=== PATIENT | female | born 1955 | race Caucasian/White ===

== ENCOUNTER 2017-02-20 12:54 | Observation (INO) ==
[2017-02-20 16:56] LABS: MANUAL DIFF NEEDED? NO
[2017-02-20 17:05] LABS: BASO% 0.1 % (0.0-0.8); EOS# 0.05 X1000 (0.0-0.7); EOS% 0.6 % (0.0-10.0); HEMATOCRIT 38.1 % (37.0-47.0); IMM GRAN# 0.02 X1000 (0.0-0.04); IMM GRAN% 0.2 % (0.0-0.5); LYMPH# 1.81 X1000 (1.2-3.4); LYMPH% 20.8 % (20.5-51.1); MCH 28.7 PG (27-31); MCHC 34.1 g/dL (33-37); MCV 84.1 FL (81-99); MONO# 0.54 X1000 (0.11-0.59); MONO% 6.2 % (1.7-9.3); MPV 11.5 FL (7.4-10.4); NEUT% 72.1 % (42.2-75.2); PLT 189 X1000 (130-400); RBC 4.53 XMIL (4.2-5.4)
[2017-02-20 17:43] LABS: AGAP 14; ALKALINE PHOSPHATASE 93 U/L (32-104); BUN 14 mg/dL (8-22); CALCIUM 9.1 mg/dL (8.8-10.2); CHLORIDE 98 mmol/L (98-107); COSMO 276; GOT 16 U/L (10-30); GPT 18 U/L (10-36); POTASSIUM 3.4 mmol/L (3.5-5.1); SODIUM 138 mmol/L (136-145); TCO2 26 mmol/L (25-35); TOTAL BILIRUBIN 0.86 mg/dL (0.20-1.00); TOTAL PROTEIN 7.3 g/dL (6.3-8.3)
[2017-02-20 17:59] LABS: URINE MICRO REVIEW NEEDED? NO; URINE SOURCE CLEAN CATCH
[2017-02-20 18:04] LABS: BILIRUBIN URINE NEGATIVE (NEGATIVE); BLOOD URINE NEGATIVE (NEGATIVE); COLOR YELLOW; GLUCOSE URINE NEGATIVE (NEGATIVE); LEUKOCYTES URINE LARGE (NEGATIVE); NITRITE URINE POSITIVE (NEGATIVE); PH URINE 5.5; PROTEIN URINE 30 mg/dL (NEGATIVE); SP GRAVITY URINE 1.022; TURBIDITY URINE HAZY (CLEAR); UROBILINOGEN URINE NORMAL (NORMAL)
[2017-02-20 18:05] LABS: UR EPITHELIAL CELLS <10 /HPF (<10); URINE BACTERIA 4+ /HPF; URINE WBC TNTC /HPF (<10)
[2017-02-20] MEDS: NS 1,000 ML IV SCH (18:18)
[2017-02-20] MEDS: DILAUDID IV PRN ×2 (18:19→23:34)
[2017-02-20] MEDS: ZOFRAN IV PRN (18:19)
[2017-02-20] MEDS: LOVENOX SUBQ SCH (18:26)
[2017-02-20] MEDS: PROTONIX IV SCH (18:26)
[2017-02-20] MEDS: SODIUM CHLORIDE 0.9% INJ SCH (18:26)
[2017-02-20] MEDS: LEVAQUIN 500 MG/D5W 500 MG/100 ML IVPB IV SCH (18:29)
--- NOTE | 2017-02-20 19:17 | Diag Imaging Result Document ---
PROCEDURE NAME: CT ABD/PELVIS W/ IV CONT ONLY - 02/20/2017 CT OF THE ABDOMEN WITH INTRAVENOUS CONTRAST: FINDINGS: There are granulomata in the lung bases. The aorta is not distended. The mesenteric and renal arteries are patent. There has been previous cholecystectomy. The spleen is not enlarged. The pancreas is unremarkable. There is some prominence of the renal pelves bilaterally, but no evidence of hydronephrosis is otherwise present. There are cysts present in both lower poles. There is some left periaortic adenopathy, just below the renal pedicle. There has been previous appendectomy. CT OF THE PELVIS WITH INTRAVENOUS CONTRAST: FINDINGS: There is a 12 mm cyst in the right ovary. There is mild diverticulosis in the sigmoid colon without evidence of diverticulitis. The urinary bladder is not distended. No significant free fluid. IMPRESSION: Retroperitoneal adenopathy of uncertain etiology or significance. The possibility of urinary tract infection cannot be excluded on the basis of this study. Otherwise, there is no evidence of acute disease.
--- NOTE | 2017-02-20 22:16 | HISTORY AND PHYSICAL ---
CHIEF COMPLAINT: 1. Back pain, pain mostly on the right side going to the groin. 2. Dysuria, blood in the urine. HISTORY OF PRESENT ILLNESS: She is a 61-year-old, pleasant white female, was seen in my office today basically with the above symptoms. Urinalysis is positive for infection. Ultrasound showed mild hydronephrosis on the right side. Patient is extremely tender and painful. KUB did not show any evidence of stones. She has been hospitalized for UTI and further evaluation of right renal colicky pain. The patient is very symptomatic. As a result, a hospital admission was warranted. PAST MEDICAL HISTORY: Hypertension, hypothyroidism, menopause, metabolic syndrome. PAST SURGICAL HISTORY: Appendectomy. Hysterectomy. MEDICINES: Synthroid 50 mcg daily. Lisinopril 20/12.5 p.o. b.i.d. ALLERGIES: Penicillin. SOCIAL HISTORY: 23 years and 1 son. 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 No smoking. No alcohol. FAMILY HISTORY: Father is 82 with no health problems. Mother 82 with hypertension. HEALTH MAINTENANCE: Flu vaccine 2015. Last mammography 12/2015. DEXA scan 2015. Colonoscopy 01/[address] Monzon. REVIEW OF SYSTEMS: HEENT: No headache. No vision problem. No earache. No sore throat. Neck: No goiter. No lymphadenopathy. No bruit. Cardiopulmonary: No chest pain, shortness of breath, PND, orthopnea. /GI: Lower back pain, hematuria, dysuria, right-sided flank pain. No altered bowel habits. No bleeding per rectum. No history of kidney stones. Gallbladder and appendix were removed. Extremities: No swelling of feet. No joint pain. Neurologic: No obvious focal symptoms or weakness. PHYSICAL EXAMINATION: VITAL SIGNS: Afebrile. Vitals are stable. 5 feet 6, 161 pounds. HEENT: Within normal limits. NECK: Supple. No lymphadenopathy. No goiter. CHEST: Bilateral air entry. No rales, no wheezing. HEART: Sounds are regular. ABDOMEN: Belly is soft, nontender. Good bowel sounds. No masses palpable. Tender in the right flank area. No signs of peritonitis. EXTREMITIES: No peripheral edema, cyanosis, clubbing. NEUROLOGIC: Exam nonfocal. INVESTIGATIONS: White cell count 8.6, hematocrit 38, platelets 189,000. SMA7 is normal. Potassium 3.24, urinalysis positive for infection. CT scan of the abdomen and pelvis is pending. ASSESSMENT AND PLAN: 1. A 61-year-old white female, admitted to the hospital with urinary tract infection with right- sided flank pain with hydronephrosis on ultrasound at [facility]. Follow up on CT of the abdomen and pelvis. Based on that, further recommendations will be followed. 2. Pain control with Dilaudid. 3. Urinary tract infection on Levaquin. 4. Gastrointestinal prophylaxis with IV Protonix. 5. Deep venous thrombosis prophylaxis with Lovenox. 6. Reconcile home medications. 7. Hypokalemia. Replace the potassium. We will follow up. cc: Michael Cornell MD MTDD
[2017-02-20] MEDS: POTASSIUM CHLORIDE 20 MEQ/SWI 20 MEQ/100 ML IVPB IV SCH (23:35)
[2017-02-21] MEDS: POTASSIUM CHLORIDE 20 MEQ/SWI 20 MEQ/100 ML IVPB IV SCH (03:08)
[2017-02-21] MEDS: NS 1,000 ML IV SCH ×3 (07:19→21:27)
--- NOTE | 2017-02-21 09:15 | PROGRESS NOTE ---
DATE: 02/21/2017 SUBJECTIVE: Interval history was reviewed. Patient is still in pain, diffuse. UA is positive for infection. REVIEW OF SYSTEMS: None reported. PHYSICAL EXAMINATION: Vitals: Stable, afebrile, blood pressure is 107/76. HEENT Examination: Within normal limits. Neck: Supple. No lymphadenopathy. Chest: Clear to auscultation. Heart: Heart sounds are regular. Abdomen: Belly is soft. Decreased tenderness. No signs of peritonitis noted. INVESTIGATIONS: CBC is normal. SMA 7: Potassium 3.4. Sedimentation rate was 30. LDH is 127. CRP was slightly high. Urinalysis is positive for infection. CT scan of the abdomen and pelvis, findings were discussed, nonspecific retroperitoneal adenopathy. Possible UTI. No kidney stones. Prior gallbladder surgery, appendectomy. ASSESSMENT AND PLAN: 1. Abdominal pain consistent with urinary tract infection. Continue on intravenous antibiotics. 2. Hypokalemia. Replace the potassium. 3. Deep venous thrombosis prophylaxis with Lovenox. 4. Continue intravenous fluids and follow up on urine for culture and sensitivity. We will slowly reconcile home medications. Plan of care is initiate the regular diet today and we will follow up. cc: Michael Cornell MD
[2017-02-21] MEDS: DILAUDID IV PRN ×2 (10:10→21:24)
[2017-02-21] MEDS: LEVAQUIN 500 MG/D5W 500 MG/100 ML IVPB IV SCH (16:51)
[2017-02-21] MEDS: LOVENOX SUBQ SCH (16:52)
[2017-02-21] MEDS: PROTONIX IV SCH (16:52)
[2017-02-21] MEDS: SODIUM CHLORIDE 0.9% INJ SCH (16:52)
[2017-02-22] MEDS: DILAUDID IV PRN ×3 (00:31→08:09)
[2017-02-22] MEDS: ZOFRAN IV PRN (08:15)
[2017-02-22] MEDS: NS 1,000 ML IV SCH ×2 (08:16→18:01)
[2017-02-22 09:03] LABS: HEMATOCRIT 33.5 % (37.0-47.0); HEMOGLOBIN 11.3 g/dL (12.0-16.0); MCH 28.8 PG (27-31); MCHC 33.7 g/dL (33-37); MCV 85.2 FL (81-99); RBC 3.93 XMIL (4.2-5.4)
[2017-02-22 09:24] LABS: AGAP 8; BUN 10 mg/dL (8-22); CALCIUM 8.2 mg/dL (8.8-10.2); CHLORIDE 107 mmol/L (98-107); COSMO 281; SODIUM 141 mmol/L (136-145); TCO2 26 mmol/L (25-35)
[2017-02-22] MEDS: MIRALAX PO SCH (11:02)
[2017-02-22] MEDS: TYLENOL PO PRN ×2 (14:33→20:08)
[2017-02-22] MEDS: LEVAQUIN 500 MG/D5W 500 MG/100 ML IVPB IV SCH (15:26)
[2017-02-22] MEDS: LOVENOX SUBQ SCH (15:26)
[2017-02-22] MEDS: PROTONIX IV SCH (15:26)
[2017-02-22] MEDS: SODIUM CHLORIDE 0.9% INJ SCH (15:26)
--- NOTE | 2017-02-22 19:52 | PROGRESS NOTE ---
DATE: 02/22/2017 SUBJECTIVE: Patient complains headache, insomnia, abdominal pain is improving. Symptoms are out of proportion to the objective findings. OBJECTIVE: Vital signs: Stable. Input and output are even. HEENT: Within normal limits. Neck: Supple. No lymphadenopathy. Chest: Clear. Heart: Sounds are regular. Abdomen: Belly is soft. Decreased tenderness. Neurologic: Nonfocal. INVESTIGATIONS: White cell count 4.9, hematocrit 33, platelets 161,000. Sedimentation rate is 30. SMA7 is normal. Urinalysis positive for E. coli, sensitive to Levaquin. ASSESSMENT AND PLAN: 1. Urinary tract infection with possible cystitis and bilateral nonspecific renal pelvis dilatation. Plan is to continue intravenous Levaquin. 2. Advance the diet, healthy heart. 3. Constipation. Stool softeners, MiraLAX. Deep venous thrombosis, gastrointestinal prophylaxis, as discussed. 4. Reconcile home medications. Follow up on the laboratory, complete blood count, SMA7 in the morning and also culture and sensitivity from the Escherichia coli. Results discussed with the patient. She has multiple somatic complaints. We will continue to monitor. Hopefully will be discharged soon. cc: Michael Cornell MD
[2017-02-23] MEDS: NS 1,000 ML IV SCH ×2 (01:00→07:53)
[2017-02-23 06:20] LABS: HEMATOCRIT 34.4 % (37.0-47.0); HEMOGLOBIN 11.5 g/dL (12.0-16.0); MCH 28.6 PG (27-31); MCHC 33.4 g/dL (33-37); MCV 85.6 FL (81-99); MPV 11.4 FL (7.4-10.4); RBC 4.02 XMIL (4.2-5.4)
[2017-02-23 06:42] LABS: AGAP 9; BUN 7 mg/dL (8-22); CALCIUM 8.4 mg/dL (8.8-10.2); CHLORIDE 108 mmol/L (98-107); COSMO 284; POTASSIUM 4.1 mmol/L (3.5-5.1); SODIUM 143 mmol/L (136-145); TCO2 26 mmol/L (25-35)
[2017-02-23] MEDS: MIRALAX PO SCH ×2 (07:52→08:00)
[2017-02-23] MEDS ORDERED: CITRATE OF MAGNESIA PO ONE (08:46)
[2017-02-23] MEDS ORDERED: DULCOLAX PR ONE (08:46)
[2017-02-23 11:52] VITALS: BP 177/82
[2017-02-23] MEDS: LEVAQUIN 500 MG/D5W 500 MG/100 ML IVPB IV SCH (12:42)
--- NOTE | 2017-02-23 19:10 | DISCHARGE SUMMARY ---
ADMISSION DATE: 02/20/2017 DISCHARGE DATE: 02/23/2017 DISCHARGING DIAGNOSIS: Lower abdominal pain due to cystitis. SECONDARY DIAGNOSES: 1. Hypertension. 2. Hypothyroidism. 3. Metabolic syndrome. 4. Menopause. 5. Hypokalemia. BRIEF HISTORY: Please see the H and P that was done on 02/20/2017. In brief, she is a 61-year-old, pleasant white female who was admitted to the hospital with lower abdominal pain, nausea and vomiting. It initially appeared to be colicky pain. Outpatient urinalysis was positive for infection with hematuria. Also ultrasound showed possible stone in the right kidney. The patient was very symptomatic and as a result, hospital admission was warranted. She was started on IV fluids and pain control. Further workup revealed there is no evidence of kidney stones, nonspecific lymphadenopathy. She has cystitis. Urine cultures grew E. coli sensitive to Levaquin. She got better with IV fluids and IV antibiotics. She also had hyperkalemia which was replaced. LABORATORIES: CBC: White cell count 4.9, hematocrit 34, platelet 170,000. SMA 7. Sodium 143, potassium 4.1, chloride 108, BUN 7, creatinine 0.7, glucose 115, calcium 8.4. CRP is slightly high. LDH is normal. Urine culture: E. coli. DISCHARGE INSTRUCTIONS: 1. Synthroid 50 mcg daily. 2. Lisinopril 20/12.5 p.o. b.i.d. 3. Potassium 20 mEq daily. 4. Culturelle 1 tablet daily. 5. MiraLAX as needed for constipation. 6. Levaquin 500 daily for 7 days. 7. Follow up in my office next week. cc: Michael Cornell MD MTDD
== END 2017-02-23 14:55 | disposition home or self-care (01) ==
LOC: INTOOBSV 12:54 → DIRADM 12:54 → 4N 16:17
PROVIDERS: ADMIT Internal Medicine; ATTEND Internal Medicine